=== PATIENT | female | born 1985 | race Caucasian/White ===

== ENCOUNTER 2017-04-10 10:31 | Inpatient (IN) | payer BC ==
[2017-04-10] VITALS (18 sets, daily range): BP systolic 138–156; BP diastolic 83–98; PULSE 65–97; TEMP 97.5–97.6
[~2017-04-10] VITALS: Ht 160 cm; Wt 75.5 kg
[~2017-04-10 10:31] MED LIST: MOTRIN 600600 MG/TAB PO; MOTRIN 800800 MG/TAB PO; NORMODYNE200 MG PO; PERCOCET 325 MG1 TA2 PO; PRENATAL1 TA1 PO; PRENATAL1 TA7 PO
[2017-04-10] MEDS ORDERED: PROCARDIA XL 6060 MG PO (14:31)
[2017-04-10 14:42] LABS: BASO % 0.2 % (0.0-2.0); EOS % 0.4 % (0-4.0); GRAN # 7.7 (1.4-6.5); GRAN % 77.1 % (42.2-75.2); HEMATOCRIT 40.5 % (37.0-47.0); HEMOGLOBIN 14.1 g/dl (12.5-16.0); LYMPH # 1.7 (1.2-3.4); LYMPH % 17.2 % (20.0-51.0); MEAN CELL VOLUME 87 fl (80.0-100.0); MEAN CORPUSCULAR HEMOGLOBIN 30 pg (27.0-31.0); MEAN CORPUSCULAR HGB CONC 35 g/dl (33.0-37.0); MEAN PLATELET VOLUME 10.9 fl (7.4-10.4); MONO # 0.5 (0.1-0.6); MONO % 4.6 % (1.7-9.3); PLATELET COUNT 226 K/mm3 (130-400); RED BLOOD COUNT 4.66 M/mm3 (4.10-5.30)
[2017-04-11 00:57] VITALS: BP 146/97; PULSE 70
[2017-04-11 04:57] VITALS: BP 141/90; PULSE 81
[2017-04-11 07:30] VITALS: BP 130/83; PULSE 76; TEMP 98.2
[2017-04-11 12:00] VITALS: BP 134/92; PULSE 72
[2017-04-11 20:00] VITALS: BP 136/86; PULSE 78; TEMP 98.3
[2017-04-12 08:00] VITALS: BP 132/82; PULSE 78; TEMP 97.8
[2017-04-12 17:30] VITALS: BP 136/78; PULSE 72; TEMP 98.1
[2017-04-12 20:30] VITALS: BP 129/84; PULSE 91; TEMP 97.2
[2017-04-13 09:00] VITALS: BP 128/83; PULSE 89; TEMP 97.5
[2017-04-13] MEDS ORDERED: IBU800 M1 PO (11:41)
[2017-04-13] MEDS ORDERED: PROCARDIA XL 6060 MG PO (11:41)
[2017-04-13] MEDS ORDERED: PERCOCET 325 MG1 TA2 PO (11:42)
== END 2017-04-13 16:00 | disposition home or self-care (01) | DRG 765 ==
LOC: LDR 10:31 → OB 14:23
PROVIDERS: Obstetrics & Gynecology
PROC: 10D00Z1 Extraction of Products of Conception, Low, Open Approach (ICD-10-PCS; principal; 2017-04-10)
DX: O10.92 Unspecified pre-existing hypertension complicating childbirth (principal); O41.03X0 Oligohydramnios, third trimester, not applicable or unspecified; O36.5930 Maternal care for other known or suspected poor fetal growth, third trimester, not applicable or unspecified; O34.211 Maternal care for low transverse scar from previous cesarean delivery; N85.8 Other specified noninflammatory disorders of uterus; Z3A.37 37 weeks gestation of pregnancy; Z37.0 Single live birth
CPT/HCPCS: J0690; J1885; J2270; J2405; J2590; J7120

== ENCOUNTER 2018-04-25 12:34 | Outpatient (CLI) | payer BC ==
[~2018-04-25] VITALS: Ht 160 cm; Wt 73.2 kg
[~2018-04-25 12:34] MED LIST changes: +IBU800 M1 PO; +PROCARDIA XL 6060 MG PO
--- NOTE | 2018-04-25 13:00 | NUR ---
Pt arrives on unit ambulatory with son from [facility] after a non-reactive FHR strip. Pt changed into a clean gown. EFM and toco applied. BP noted 171/103. Procardia 90mg XL is taken daily. Pt denies taking procardia this morning, and normally takes medication in the evening. Per Dr. Hawley, orders to taken Procardia 90mg XL PO now. CBC, UA and CMP. Pt updated on plan of care. Admission assessment completed. Call light within reach. No questions or concerns at this time.
[2018-04-25] MEDS ORDERED: PROCARDIA XL90 MG PO (13:09)
[2018-04-25 13:19] LABS: BASO % 0.2 % (0.0-2.0); EOS % 0.4 % (0-4.0); GRAN % 77.4 % (42.2-75.2); HEMATOCRIT 38.4 % (37.0-47.0); HEMOGLOBIN 12.9 g/dl (12.5-16.0); LYMPH # 1.5 (1.2-3.4); LYMPH % 16.6 % (20.0-51.0); MEAN CELL VOLUME 83 fl (80.0-100.0); MEAN CORPUSCULAR HEMOGLOBIN 28 pg (27.0-31.0); MEAN CORPUSCULAR HGB CONC 34 g/dl (33.0-37.0); MEAN PLATELET VOLUME 11.2 fl (7.4-10.4); MONO # 0.5 (0.1-0.6); PLATELET COUNT 224 K/mm3 (130-400); RED BLOOD COUNT 4.63 M/mm3 (4.10-5.30); REDCELL DISTRIBUTION WIDTH-CV 13.2 % (11.5-14.5)
[2018-04-25 13:28] LABS: ALBUMIN 3.5 gm/dL (3.5-5.0); BILIRUBIN,TOTAL 0.2 mg/dL (0.0-1.0); CALCIUM 8.7 mg/dL (8.4-10.2); CREATININE, serum 0.46 mg/dL (0.52-1.25); POTASSIUM 3.8 mmol/L (3.4-5.0); TOTAL PROTEIN 7.1 gm/dL (6.4-8.2)
[2018-04-25 13:50] VITALS: BP 168/103; PULSE 95; TEMP 98.4
[2018-04-25 13:50] LABS: COLLECTION METHOD CLEAN CATCH
[2018-04-25 14:20] VITALS: BP 138/94; PULSE 100
[2018-04-25 14:45] VITALS: BP 153/99; PULSE 86
[2018-04-25 14:49] LABS: PH 7 (5-8); SQUAMOUS EPITHELIAL 0-2 /hpf; URINE APPEARANCE Clear; URINE BACTERIA None Seen /hpf; URINE BILIRUBIN Negative (NEGATIVE); URINE BLOOD Negative (NEGATIVE); URINE COLOR Straw; URINE GLUCOSE Negative (NEGATIVE); URINE KETONE Negative (NEGATIVE); URINE LEUKOCYTE ESTERASE Negative (NEGATIVE); URINE NITRATE Negative (NEGATIVE); URINE PROTEIN(semi-quant) Negative (NEGATIVE); URINE RBC 0-2 /hpf; URINE UROBILINOGEN Negative (NEGATIVE); URINE WBC 0-2 /hpf
--- NOTE | 2018-04-25 14:50 | NUR ---
Dr. Hawley on unit. Reviews FHR strip and labs. Orders for discharge. Pt taken of monitors. Discharge instructions given. No questions or concerns at this time. Leaves unit ambulatory.
== END 2018-04-25 15:00 | disposition home or self-care (01) ==
LOC: LDRO 12:34 → LDR 13:00 → LDRO 15:00
PROVIDERS: Obstetrics & Gynecology
DX: O36.8930 Maternal care for other specified fetal problems, third trimester, not applicable or unspecified (principal); Z3A.35 35 weeks gestation of pregnancy
CPT/HCPCS: OP